=== PATIENT | female | born 1990 | race Caucasian/White ===

== ENCOUNTER → 2021-11-30 09:35 | Observation (INO) | END | disposition home or self-care (01) | LOC: 1NENULAB | PROVIDERS: ADMIT Registered Nurse; ATTEND Registered Nurse ==

== ENCOUNTER 2021-12-06 19:02 | Inpatient (IN) ==
[2021-12-06] MEDS ORDERED: *HR* Nalbuphine 10 MG/ML AMPUL IV PRN (19:07)
[2021-12-06] MEDS ORDERED: Metoclopramide 10 MG/2 ML VIAL IVP PRN (19:07)
[2021-12-06] MEDS ORDERED: Ondansetron 4 MG/2 ML VIAL IVP PRN (19:07)
[2021-12-06] MEDS ORDERED: Famotidine 20 MG/2 ML VIAL IVP PRN (19:07)
[2021-12-06] MEDS ORDERED: Naloxone 0.4 MG/ML INJ IVP PRN (19:07)
[2021-12-06] MEDS ORDERED: miSOPROStoL 25 MCG TABLET PO PRN (19:10)
[2021-12-06] MEDS ORDERED: Ringers Solution, Lactated 1,000 ML IVC SCH (19:15)
[2021-12-06 20:12] LABS: Basophils % 0.3 %; Eosinophils # 0.2 K/mcL (0.0-0.6); Eosinophils % 1.8 %; Hematocrit 39.1 % (35.3-44.9); Hemoglobin 13.3 g/dL (11.5-15.4); Immature Granulocytes % 0.5 % (0-4); Lymphocytes # 1.4 K/mcL (0.6-4.6); Lymphocytes % 10.8 %; Mean Corpuscular Hemoglobin 32.4 pg (28.0-33.3); Mean Corpuscular Volume 95.4 fL (83.0-100.0); Mean Platelet Volume 10.5 fL (9.4-12.4); Monocytes # 0.6 K/mcL (0.0-1.3); Monocytes % 4.7 %; Neutrophils # 10.5 K/mcL (1.6-8.9); Platelet Count 230 K/mcL (140-400); Red Cell Distribution Width 13.2 % (11.5-14.5); Segmented Neutrophils % 81.9 %; White Blood Count 12.8 K/mcL (4.3-11.1)
[2021-12-06 20:20] LABS: Amphetamine Screen,Urine Negative ng/mL (Cutoff=1000); Barbiturate Screen,Urine Negative ng/mL (Cutoff=200); Benzodiazepines Screen,Urine Negative ng/mL (Cutoff=200); Cannabinoid Screen,Urine Negative ng/mL (Cutoff = 50); Cocaine Screen,Urine Negative ng/mL (Cutoff= 300); Opiate Screen,Urine Negative ng/mL (Cutoff=300); Phencyclidine Screen,Urine Negative ng/mL (Cutoff=25)
[2021-12-06 20:44] LABS: Influenza A PCR Negative (Negative); Influenza B PCR Negative (Negative); Resp. Syncytial Virus PCR Negative (Negative)
[2021-12-06 20:45] LABS: SARS-CoV-2 by PCR (In House) Negative (Negative)
[2021-12-06] MEDS ORDERED: EPHEDrine 50 MG/ML VIAL IVP PRN (21:21)
[2021-12-06] MEDS ORDERED: Epidural Premix (fent/bupiv) 110 ML EP SCH (21:30)
[2021-12-06] MEDS ORDERED: Oxytocin 30 UNIT/503 ML BAG IVC SCH (23:45)
[2021-12-06] MEDS ORDERED: Oxytocin 30 UNIT/503 ML BAG IVC ONE (23:52)
[2021-12-07] MEDS ORDERED: *HR* FentaNYL (PF) 100 MCG/2 ML VIAL ONE (03:56)
[2021-12-07] MEDS ORDERED: Ibuprofen 600 MG TABLET PO ONE (06:31)
[2021-12-07] MEDS ORDERED: Oxytocin 30 UNIT/503 ML BAG IVC SCH (08:46)
[2021-12-07] MEDS ORDERED: Lanolin 7 G OINT...G. TP PRN (08:46)
[2021-12-07] MEDS ORDERED: Benzocaine/Menthol 56 GM AEROSOL SPRAY TP PRN (08:46)
[2021-12-07] MEDS ORDERED: *HR* OxyCODONE Immed Rel 5 MG TABLET PO PRN (08:46)
[2021-12-07] MEDS ORDERED: Ondansetron ODT 4 MG TAB.RAPDIS SL PRN (08:46)
[2021-12-07] MEDS: Ibuprofen 600 MG TABLET PO SCH ×2 (10:47→21:50)
[2021-12-07] MEDS: Acetaminophen 325 MG TABLET PO SCH (21:52)
[2021-12-08] MEDS: Ibuprofen 600 MG TABLET PO SCH ×3 (03:49→12:46)
[2021-12-08] MEDS: Acetaminophen 325 MG TABLET PO SCH ×2 (03:50→12:46)
[2021-12-08 07:20] VITALS: BP 103/64; PULSE 84; TEMP 97.9; O2SAT 98
[2021-12-08] MEDS: Prenatal Vit/FA 1 EACH TABLET PO SCH (12:14)
== END 2021-12-08 12:10 | disposition home or self-care (01) | DRG 807 ==
LOC: 1NENULAB 19:02 → 1NENUOBS 12-07 08:44
PROVIDERS: ADMIT Advanced Practice Midwife; ATTEND Advanced Practice Midwife